=== PATIENT | male | born 2000 | race Caucasian/White ===

== ENCOUNTER 2023-09-25 13:37 | Emergency (ER) | payer SELFPAY ==
[2023-09-25] MEDS ORDERED: Ibuprofen 800 MG TAB ONE (16:43)
== END 2023-09-25 16:54 | disposition home or self-care (01) ==
LOC: ERS 13:37
DX: S83.92XA Sprain of unspecified site of left knee, initial encounter (principal); W54.1XXA Struck by dog, initial encounter